=== PATIENT | female | born 1965 | race Caucasian/White ===

== ENCOUNTER → 2017-08-21 | Outpatient (CLI) | payer OTHER | LOC: M.ULTRA 14:09 | DX: E01.0 Iodine-deficiency related diffuse (endemic) goiter (principal) ==

== ENCOUNTER → 2017-11-23 | Outpatient (CLI) | payer OTHER ==
--- NOTE | 2017-11-25 15:51 | CNG ---
[address] [address] CYTO-NONGYN REPORT PROCEDURE Name: MAX CANALES Room: [facility].#: [id number] Admission: 11/23/17 Date of : 65 Discharge: Report #: [id number] Path Case #: [id number] CYTOPATHOLOGY REPORT COLLECTION DATE: 11/23/2017 RECEIVED DATE: 11/23/2017 SUBMITTING PHYS: Dr. Pito Drew OTHER PHYS: Dr. Catherine Woods CLINICAL HISTORY: 1.9 x 0.97 x 1.5cm nodule PROCEDURE: Five passes performed by Dr. Drew yielding 25 mL of cloudy pink fluid. Four fixed slides and four air-dried slides were submitted to the lab. Per Dr. Drew, could be parathyroid. SPECIMEN(S) RECEIVED: A.Fine needle aspiration, Right thyroid nodule * * * * * * * * * * * * FINAL DIAGNOSIS: A. Fine needle aspiration, Right thyroid nodule: Parathyroid tissue. See comment. COMMENT: The smears and cell block show abundant cellularity of a monotonous/bland population of epithelioid cells present in many prominent aggregates as well as singly, without significant evidence of intermingled fat. Colloid is not apparent. Properly-controlled immunohistochemical stains performed on the cell block shows the aggregates of epithelioid cells to have the following characteristics, supporting the diagnosis: TTF-1: Negative Chromogranin: Strong positive Evaluation/removal of the entire lesion is necessary to more definitively classify it. Reviewed with Dr. Surendra Perkins who agrees with the diagnosis. (NAEL:mml; 11/25/2017) PATHOLOGIST: Gulshan Lin M.D. REPORT ELECTRONICALLY SIGNED BY: Gulshan Lin M.D. DATE/TIME: 11/25/2017 15:50 * * * * * * * * * * * * GROSS PATHOLOGY: A. Fine needle aspiration, Right thyroid nodule: The specimen is labeled "Max Canales" and consists of four fixed slides and four air dried slides. Twenty five mL of cloudy pink fluid in fixative from the needle rinse is also submitted and one [place] [address] CYTO-NONGYN REPORT PROCEDURE Name: MAX CANALES Room: [facility]#: [id number] Admission: 11/23/17 Date of : 65 Discharge: Report #: [id number] Path Case #: [id number] alcohol fixed cell block were prepared from this material. Afirma vial was received. (lg 11.23.2017) BRAKE REPAIR SUPERVISOR(S): KALE Silva(ASCP) INITIAL CPT CODE(S): A; 14705, 28650, 45005, 57061 Professional services performed by [facility] at [facility], [address] [place] [id number]. Technical services performed by [facility] at [address] [place] [address], [address], [place] [address]. [facility] [address] [facility], [address] [place] [address] PHONE: [phone] DIRECTOR: Dany العلي M.D. * * * END OF REPORT * * *
== END | disposition home or self-care (01) ==
LOC: M.ULTRA 07:53
DX: E04.1 Nontoxic single thyroid nodule (principal)